=== PATIENT | female | born 1995 | race Caucasian/White ===

== ENCOUNTER → 2017-05-10 | Outpatient (CLI) | payer BC ==
[~2017-05-10] MED LIST: MULT-506 PO
== END | disposition home or self-care (01) ==
LOC: C.RDSM 11:29
PROVIDERS: ATTEND Physical Medicine & Rehabilitation Sports Medicine
DX: S83.511D Sprain of anterior cruciate ligament of right knee, subsequent encounter (principal); S83.281D Other tear of lateral meniscus, current injury, right knee, subsequent encounter; X58.XXXD Exposure to other specified factors, subsequent encounter; M25.562 Pain in left knee

== ENCOUNTER → 2017-08-08 | Outpatient (CLI) | payer BC ==
--- NOTE | 2017-08-08 16:45 | DIAGNOSTIC IMAGING REPORT ---
MRI THE RIGHT KNEE NO CONTRAST CLINICAL HISTORY: Right knee pain. History of ACL reconstruction. COMPARISON STUDY: Conventional radiographic study dated 05/10/2017, MRI the right knee dated 03/06/2015 FINDINGS: Imaging was performed in the sagittal, coronal, and axial planes. There is mild motion artifact. There are no areas of marrow edema to indicate occult fracture or bone bruise. The quadriceps and patellar tendons appear intact. The posterior cruciate ligament appears intact. The patient's ACL graft appears intact. There is an old impaction deformity of the lateral femoral condyle. There is a 13 mm anterior cyst/ganglion abutting the anterior horn of the lateral meniscus. No acute meniscal tears are visualized. The medial and lateral collateral ligaments appear intact There are developing arthritic changes involving the medial lateral joint compartments with early osteophytic spurring. No patellar abnormalities are visualized. The patellar retinaculum appears intact. IMPRESSION: 1. Postsurgical changes are prior ACL repair. The ACL graft appears intact 2. 13 mm parameniscal cyst abutting the anterior horn lateral meniscus. No associated meniscal tear is visualized 3. Old impaction deformity involving the lateral femoral condyle 4. Developing osteoarthritic changes within the medial lateral joint compartments with early osteophytic spurring Electronically signed by: Kenn Farfan M.D. 08/08/2017 4:43 PM Dictated Date/Time: 08/08/2017 4:35 PM
== END | disposition home or self-care (01) ==
LOC: C.MRI 15:36
PROVIDERS: ATTEND Physical Medicine & Rehabilitation Sports Medicine
DX: M23.041 Cystic meniscus, anterior horn of lateral meniscus, right knee (principal); M17.11 Unilateral primary osteoarthritis, right knee; M25.761 Osteophyte, right knee; Z98.890 Other specified postprocedural states